=== PATIENT | male | born 1975 | race African-American/Black ===

== ENCOUNTER 2021-07-14 10:11 | Inpatient (IN) | payer OTHER ==
[~2021-07-14] VITALS: Ht 170.2 cm; Wt 74.5 kg
[2021-07-14 10:32] LABS: BASOPHIL 0.8 % (0-2); EOSINOPHIL 0.5 % (0-5); HCT 37.9 % (42.0-52.0); HGB 12.7 g/dl (13.2-18.0); MCHC 33.5 g/dL (32.0-36.0); MCV 83.7 fL (78.0-100.0); MONOCYTE 10.1 % (0-12); MPV 10.1 fL (6.0-9.5); NEUTROPHIL 59.1 % (41-80); NRBC 0; PLT 169 K/uL (150-400); RBC 4.53 M/uL (4.70-6.00); RDW 15.9 % (11.5-14.0); WBC 3.9 K/uL (4.0-10.5)
[2021-07-14 10:49] LABS: INR 0.94 (0.9-1.2); PTT 27.4 SECONDS (24.4-34.7)
[2021-07-14 10:58] LABS: ALBUMIN 4.1 g/dL (3.4-5.0); BILIRUBIN - TOTAL 0.5 mg/dL (0.2-1.0); BUN/CREAT RATIO (CALC) 7.8 RATIO; CREATININE 1.03 mg/dL (0.67-1.17); GLOBULIN (CALCULATION) 3.4 g/dL; MAGNESIUM 1.8 mg/dL (1.8-2.4); POTASSIUM 4.4 mmol/L (3.5-5.1); TOTAL PROTEIN 7.5 g/dL (6.4-8.2)
[2021-07-14 11:04] LABS: LACTIC ACID 5.6 mmol/L (0.4-1.9)
[2021-07-14 12:56] LABS: BILIRUBIN NEGATIVE (NEGATIVE); BLOOD NEGATIVE Ery/uL (NEGATIVE); CLARITY CLEAR (CLEAR); COLOR YELLOW (YELLOW); GLUCOSE (U) NORMAL (NORMAL); LEUKOCYTES NEGATIVE Leu/uL (NEGATIVE); NITRITE NEGATIVE (NEGATIVE); PROTEIN NEGATIVE (NEGATIVE); pH 7.5 (5.0-9.0)
[2021-07-14 13:01] LABS: AMPHETAMINES NEGATIVE (NEGATIVE); BARBITURATES NEGATIVE (NEGATIVE); ECSTASY (MDMA) NEGATIVE (NEGATIVE); MARIJUANA (THC) NEGATIVE (NEGATIVE); METHADONE NEGATIVE (NEGATIVE); OPIATES NEGATIVE (NEGATIVE); OXYCODONE NEGATIVE (NEGATIVE)
[2021-07-15 05:54] LABS: BASOPHIL 0.5 % (0-2); EOSINOPHIL 1.7 % (0-5); HCT 35.4 % (42.0-52.0); HGB 11.6 g/dl (13.2-18.0); LYMPHOCYTE 40.2 % (15-48); MCH 27.8 pg (25.0-31.0); MCHC 32.8 g/dL (32.0-36.0); MCV 84.9 fL (78.0-100.0); MONOCYTE 9.6 % (0-12); MPV 10.2 fL (6.0-9.5); NEUTROPHIL 47.8 % (41-80); NRBC 0; PLT 131 K/uL (150-400); RBC 4.17 M/uL (4.70-6.00); WBC 4.1 K/uL (4.0-10.5)
[2021-07-15 06:26] LABS: BILIRUBIN - TOTAL 0.8 mg/dL (0.2-1.0); BUN/CREAT RATIO (CALC) 5.4 RATIO; CREATININE 1.12 mg/dL (0.67-1.17); GLOBULIN (CALCULATION) 3.1 g/dL; MAGNESIUM 2.1 mg/dL (1.8-2.4); PHOSPHORUS 4.1 mg/dL (2.6-4.7); POTASSIUM 3.6 mmol/L (3.5-5.1); TOTAL PROTEIN 6.1 g/dL (6.4-8.2)
--- NOTE | 2021-07-15 14:35 | NUR ---
07/15/21 Mr. Romero is being evaluated by [facility] for a possible admission. He was admitted from the [facility] ([phone]). [facility] will consider re-admission. Please call [facility] when patient is ready for discharge if he wasn't admitted to [facility]. Ask for admissions. They will ask you to fax updated clinicals to [phone]. (H&P has already been faxed). [facility] will call you back with a decision and send someone to transport if they approved. Patient has been provided with community resources. - Report given to GUERITA Rosales RN.
[2021-07-16 06:08] LABS: ALBUMIN 3.1 g/dL (3.4-5.0); BILIRUBIN - TOTAL 0.6 mg/dL (0.2-1.0); BUN/CREAT RATIO (CALC) 5.8 RATIO; CREATININE 1.03 mg/dL (0.67-1.17); GLOBULIN (CALCULATION) 3.2 g/dL; MAGNESIUM 1.9 mg/dL (1.8-2.4); TOTAL PROTEIN 6.3 g/dL (6.4-8.2)
[2021-07-16 06:15] LABS: POTASSIUM 3.9 mmol/L (3.5-5.1)
[2021-07-16] MEDS ORDERED: SEROQUEL 25MG T25 MG PO ×2 (11:26→12:30)
[2021-07-16] MEDS ORDERED: CYPROHEPTADINE H4 MG PO (11:26)
[2021-07-16] MEDS ORDERED: PROTONIX 40MG T40 MG PO (11:26)
[2021-07-16] MEDS ORDERED: LIBRIUM25 MG PO (11:26)
[2021-07-16] MEDS ORDERED: VITAMIN B-1100 M1 PO (11:26)
[2021-07-16] MEDS ORDERED: VITAMIN B-121000 MC1 PO (11:26)
[2021-07-17 08:08] LABS: HBSAG SCREEN Negative (Negative); HEP B CORE AB, TOT Negative (Negative); HEP C VIRUS AB 0.1 (0.0-0.9)
== END 2021-07-16 12:10 | disposition home or self-care (01) | DRG 897 ==
LOC: FER 10:11 → FTCU 13:24
PROVIDERS: Emergency Medicine; ADMIT Allergy & Immunology Allergy
PROC: HZ2ZZZZ Detoxification Services for Substance Abuse Treatment (ICD-10-PCS; principal; 2021-07-14)
DX: F10.139 Alcohol abuse with withdrawal, unspecified (principal); J98.11 Atelectasis; K29.70 Gastritis, unspecified, without bleeding; K21.9 Gastro-esophageal reflux disease without esophagitis; K70.10 Alcoholic hepatitis without ascites; Z20.822 Contact with and (suspected) exposure to COVID-19; K70.0 Alcoholic fatty liver; E78.5 Hyperlipidemia, unspecified; F41.9 Anxiety disorder, unspecified; F32.A Depression, unspecified; M54.12 Radiculopathy, cervical region; G47.00 Insomnia, unspecified; Z79.899 Other long term (current) drug therapy
CPT/HCPCS: 36415; 71045; 80053; 80061; 80305; 81003; 83036; 83605; 83690; 83735; 84100; 84484; 85025; 85610; 85730; 86704; 86706; 86708; 86803; 87040; 87340; C9113; G0480; J2405; J2543; J2560; J3360; J3411; J3475; J3480; J7030; J7120; Q9967; U0002